=== PATIENT | male | born 1945 | race Caucasian/White ===

== ENCOUNTER 2020-08-08 09:53 | Inpatient (IN) | payer BC, OTHER ==
[~2020-08-08] VITALS: Ht 182.9 cm; Wt 99.4 kg
[2020-08-08] MEDS ORDERED: ONDANSETRON 2MG/ML, 2ML ONE ×2 (10:30→16:32)
[2020-08-08] MEDS ORDERED: LORazepam 2 MG/ML, 1ML ONE ×2 (10:30→12:40)
[2020-08-08] MEDS ORDERED: SODIUM CHLORIDE 0.9% 1,000ML IVBOLUS ONE (10:30)
[2020-08-08] MEDS ORDERED: SODIUM CHLORIDE FLUSH 10ML SYR IVF ONE (10:30)
[2020-08-08] MEDS ORDERED: THIAMINE 100 MG in SODIUM CHLORIDE 0.9% 50 ML IVPB ONE (10:30)
[2020-08-08] MEDS ORDERED: ONDANSETRON 2MG/ML, 2ML IVPush ONE (10:30)
[2020-08-08] MEDS: LORazepam 2 MG/ML, 1ML IVPush PRN ×2 (10:38→12:42)
[2020-08-08 10:51] LABS: BASOPHILS % (AUTO) 1 % (0-1); EOSINOPHILS % (AUTO) 0 % (1-7); LYMPHOCYTES % (AUTO) 10 % (22-44); MEAN CORPUSCULAR HEMOGLOBIN 34.7 pg (27.5-34.5); MEAN CORPUSCULAR HGB CONC 34.2 g/dL (33.2-36.2); MEAN PLATELET VOLUME 7.5 fL (7.4-10.4); MONOCYTES % (AUTO) 7 % (2-9); NEUTROPHILS % (AUTO) 82 % (42-75); PLATELET COUNT 218 x10^3/uL (130-400); RED BLOOD COUNT 4.92 x10^6/uL (4.38-5.82)
[2020-08-08 10:57] LABS: ALANINE AMINOTRANSFERASE 45 U/L (12-78); ALBUMIN 3.6 g/dL (3.4-5.0); ANION GAP 17 mmol/L (5-15); CALCIUM 8.4 mg/dL (8.5-10.1); CHLORIDE 102 mmol/L (98-107); CREATININE 0.84 mg/dL (0.7-1.3)
--- NOTE | 2020-08-08 10:58 | NUR ---
PT CAME IN SEEKING TO DETOX FROM ETOH. PT STATES HIS LAST DRINK THIS MORNING AND IT WAS "WHITE WINE". PT RESTING IN [facility]. LABS DRAWN. MEDICATED PER APR. EKG CMPLETE.
[2020-08-08 10:59] LABS: ALKALINE PHOSPHATASE 100 U/L (45-117); BILIRUBIN,TOTAL 0.9 mg/dL (0.2-1.0); TOTAL PROTEIN 6.6 g/dL (6.4-8.2)
--- NOTE | 2020-08-08 11:47 | NUR ---
PT EMILEE IN [facility]. NAD
[2020-08-08 12:09] LABS: ACETONE, SERUM Negative (Negative)
--- NOTE | 2020-08-08 12:42 | NUR ---
BILL GARCIA. MEDICATED PER ELLIOT
[2020-08-08] MEDS ORDERED: DIPHENHYDRAMINE 50 MG CAPSULE PO PRN (13:00)
[2020-08-08] MEDS ORDERED: LORazepam 2 MG/ML, 1ML IV PRN ×5 (13:00)
[2020-08-08] MEDS ORDERED: ENOXAPARIN 40 MG/0.4 ML SQ SCH (13:00)
[2020-08-08] MEDS ORDERED: LABETALOL 5MG/ML, 20ML IV PRN (13:00)
[2020-08-08] MEDS ORDERED: ALUMINUM/MAG/SIMETHICONE 30 ML UDC PO PRN (13:00)
[2020-08-08] MEDS ORDERED: DOCUSATE 100 MG CAPSULE PO PRN (13:00)
[2020-08-08] MEDS ORDERED: ACETAMINOPHEN 325 MG TABLET PO PRN (13:00)
[2020-08-08] MEDS ORDERED: FLUO20CA19 PO (13:25)
[2020-08-08 13:27] VITALS: BP 146/92
[2020-08-08] MEDS: POTASSIUM CHLORIDE 20 MEQ, MAGNESIUM SULFATE 1 GM, FOLIC ACID 1 MG, THIAMINE 200 MG, MV... IV SCH (13:59)
[2020-08-08 14:21] LABS: BASOPHILS % (AUTO) 1 % (0-1); EOSINOPHILS % (AUTO) 0 % (1-7); LYMPHOCYTES % (AUTO) 10 % (22-44); MEAN CORPUSCULAR HEMOGLOBIN 34.8 pg (27.5-34.5); MEAN CORPUSCULAR HGB CONC 33.7 g/dL (33.2-36.2); MEAN PLATELET VOLUME 7.5 fL (7.4-10.4); MONOCYTES % (AUTO) 7 % (2-9); NEUTROPHILS % (AUTO) 83 % (42-75); PLATELET COUNT 184 x10^3/uL (130-400); RED CELL DISTRIBUTION WIDTH 16.4 % (9.4-14.8)
[2020-08-08] MEDS: MAGNESIUM CHLORIDE 64 MG TABLET.DR PO SCH ×2 (16:36→21:12)
[2020-08-08] MEDS: CHLORDIAZEPOXIDE 25 MG CAPSULE PO SCH ×2 (16:36→21:12)
[2020-08-08] MEDS ORDERED: ONDANSETRON 2MG/ML, 2ML IVPush PRN (17:00)
[2020-08-08 19:25] VITALS: BP 124/84
[2020-08-08] MEDS ORDERED: QUETIAPINE 100MG TABLET PO SCH (21:00)
[2020-08-09] MEDS: SODIUM CHLORIDE 0.9% 1,000 ML IV SCH ×2 (00:03→09:56)
[2020-08-09 01:53] VITALS: BP 124/76
[2020-08-09] MEDS ORDERED: THYROID 30 MG TABLET PO SCH (06:00)
[2020-08-09] MEDS: CHLORDIAZEPOXIDE 25 MG CAPSULE PO SCH ×3 (06:22→15:20)
[2020-08-09 06:40] VITALS: BP 117/77
[2020-08-09] MEDS ORDERED: THIAMINE 100 MG in DEXTROSE 5% 50 ML IVPB SCH (09:00)
[2020-08-09] MEDS ORDERED: MULTIVITAMINS/MINERALS TABLET PO SCH (09:00)
[2020-08-09] MEDS: MAGNESIUM CHLORIDE 64 MG TABLET.DR PO SCH (09:55)
[2020-08-09] MEDS ORDERED: THIAMINE 100MG TABLET PO SCH (10:00)
[2020-08-09] MEDS ORDERED: THIAMINE 100MG TABLET ONE (10:03)
[2020-08-09] MEDS ORDERED: CLON0.2T PO (10:58)
[2020-08-09] MEDS ORDERED: THYR180T PO (10:58)
[2020-08-09] MEDS ORDERED: LISI40TA9 PO (10:58)
[2020-08-09] MEDS ORDERED: RIVA20TA PO (10:58)
[2020-08-09] MEDS ORDERED: QUET400T7 PO (10:58)
[2020-08-09] MEDS ORDERED: LORA2TAB99 PO (10:58)
[2020-08-09] MEDS ORDERED: QUETIAPINE FUMARATE 400 MG PO SCH (13:00)
[2020-08-09] MEDS: POTASSIUM CHLORIDE 20 MEQ, MAGNESIUM SULFATE 1 GM, FOLIC ACID 1 MG, THIAMINE 200 MG, MV... IV SCH (13:30)
[2020-08-09] MEDS ORDERED: FLUOXETINE HCL 20 MG CAPSULE PO SCH (13:30)
[2020-08-09 14:29] VITALS: BP 116/68
[2020-08-09] MEDS ORDERED: RIVAROXABAN 20 MG TABLET PO SCH (16:30)
[2020-08-09] MEDS ORDERED: CHLO25CA9 PO (16:33)
[2020-08-09] MEDS ORDERED: GABA100C PO (16:33)
[2020-08-09] MEDS ORDERED: LISINOPRIL 40 MG TABLET PO SCH (21:00)
[2020-08-10] MEDS ORDERED: THYROID 30 MG TABLET PO SCH (06:00)
[2020-08-10] MEDS ORDERED: THIAMINE 100 MG in DEXTROSE 5% 50 ML IVPB SCH (09:00)
== END 2020-08-09 18:23 | disposition home or self-care (01) | DRG 641 ==
LOC: ED 11:09 → EDIP 12:24 → 4WST 13:05
PROVIDERS: ADMIT Internal Medicine; ATTEND Family Medicine
DX: E86.0 Dehydration (principal); F10.239 Alcohol dependence with withdrawal, unspecified; E03.9 Hypothyroidism, unspecified; F10.229 Alcohol dependence with intoxication, unspecified; Y90.9 Presence of alcohol in blood, level not specified; E87.2 Acidosis; F41.9 Anxiety disorder, unspecified; G47.00 Insomnia, unspecified; I10 Essential (primary) hypertension; Z91.14 Patient's other noncompliance with medication regimen
CPT/HCPCS: 36415; 96374; 99285; J7121; 71045; 80053; 80320; 82010; 83605; 83735; 84100; 84443; 85025; 93005; G0378; J1650; J2405; J3411; J3475; J3480; G0480; J2060; J7030